=== PATIENT | male | born 1960 ===

== ENCOUNTER 2019-12-04 13:33 | Inpatient (IN) | payer BC ==
[~2019-12-04] VITALS: Ht 172.7 cm; Wt 78.6 kg
[2019-12-04] VITALS (435 sets, daily range): BP systolic 89–131; BP diastolic 67–83; PULSE 75–102; TEMP 97.6–98.9; O2SAT 73–100
[2019-12-04 16:45] LABS: INR 1.4 (0.8-3.0)
--- NOTE | 2019-12-04 19:20 | NUR ---
REPORT RECEIVED FROM DEWAYNE REYES.
--- NOTE | 2019-12-04 20:05 | NUR ---
RECEIVED PATIENT WITH CARDIZEMAT 15 MG/HR.
--- NOTE | 2019-12-04 20:30 | NUR ---
PT'S DAUGHTER CASSANDRA CALLED AND UPDATED, ALL QUESTIONS ANSWERED.
--- NOTE | 2019-12-04 23:17 | NUR ---
PT HAS NOT URINATED SINCE HE GOT HERE, AND PT TRIED TO PEE COUPLE OF TIMES AND UNSECCESSFUL. BLADDER SCAN SHOWED ABOUT 1500 ML. PT GOT UP AGAIN AND URINATED 300 ML TEA COLORED URINE WITH NO SEDIMENTS.
[2019-12-05] VITALS (588 sets, daily range): BP systolic 91–122; BP diastolic 37–85; PULSE 73–90; TEMP 98–99.3; O2SAT 81–100
--- NOTE | 2019-12-05 00:04 | NUR ---
cho inserted per order, pt tolerated procedure well. bag already has atleast 500 ml if urine within 10 mins, tea-colored but clear.
--- NOTE | 2019-12-05 00:26 | NUR ---
PT SUSTAINING AT 89%, NOW ON O2 AT 2L NC SATTING AT 92%.
[2019-12-05 01:14] LABS: PH 5 (5-8); SQUAMOUS EPITHELIAL None Seen /hpf; URINE APPEARANCE Hazy; URINE BILIRUBIN Negative (NEGATIVE); URINE BLOOD 1+ (NEGATIVE); URINE COLOR Amber; URINE GLUCOSE 3+ (NEGATIVE); URINE KETONE Negative (NEGATIVE); URINE LEUKOCYTE ESTERASE Negative (NEGATIVE); URINE NITRATE Negative (NEGATIVE); URINE PROTEIN(semi-quant) 2+ (NEGATIVE); URINE UROBILINOGEN >=4.0 mg/dL (NEGATIVE)
[2019-12-05 01:35] LABS: COLLECTION METHOD CATHETER
--- NOTE | 2019-12-05 02:43 | NUR ---
PT IS NOW SITTING AT THE RECLINER, BACK TO ROOM AIR AND SATTING AT 93-96%.
[2019-12-05 07:22] LABS: BASO # 0.1 (0.0-0.2); BASO % 1.1 % (0.0-2.0); EOS # 0.1 (0.0-0.7); EOS % 0.6 % (0-4.0); GRAN # 6.4 (1.4-6.5); GRAN % 71.7 % (42.2-75.2); HEMATOCRIT 45.3 % (42.0-52.0); HEMOGLOBIN 14.8 g/dl (13.5-18.0); LYMPH # 1.3 (1.2-3.4); LYMPH % 14.3 % (20.0-51.0); MEAN CELL VOLUME 96 fl (80.0-100.0); MEAN CORPUSCULAR HEMOGLOBIN 31 pg (27.0-31.0); MEAN CORPUSCULAR HGB CONC 33 g/dl (33.0-37.0); MEAN PLATELET VOLUME 10.4 fl (7.4-10.4); MONO # 1.1 (0.1-0.6); PLATELET COUNT 217 K/mm3 (130-400); RED BLOOD COUNT 4.72 M/mm3 (4.20-5.60); REDCELL DISTRIBUTION WIDTH-CV 13.4 % (11.5-14.5)
--- NOTE | 2019-12-05 07:23 | NUR ---
report given to DEWAYNE Johnston.
[2019-12-05 07:40] LABS: ALBUMIN 3.6 gm/dL (3.5-5.0); BILIRUBIN,TOTAL 1.2 mg/dL (0.0-1.0); CALCIUM 8.4 mg/dL (8.4-10.2); CHOLESTEROL RISK RATIO 3.4; CREATININE, serum 1.93 (0.66-1.25); TOTAL PROTEIN 7.3 gm/dL (6.4-8.2)
[2019-12-05 08:10] LABS: TSH w REFLEX 2.49 uIU/mL (0.465-4.680)
--- NOTE | 2019-12-05 09:35 | NUR ---
LUIS EDUARDO attended clinical rounds. The patient's step-daughter, Radha (ph#[phone]), was on speaker phone. The patient is to have a heart cath today. LUIS EDUARDO then followed up with the patient to discuss discharge plan. The patient lives in [place] with his , Francisca (ph#[phone]). He reports independence with ADLs and does not have any DME. The patient does not have a PCP. He states that he would be agreeable to get set up with a PCP and preferred a provider is [place]. LUIS EDUARDO contacted [place] at [facility] and secured the patient and appointment with Dr. Tiburcio Lemus on 12/13 at 1400. [place] emailed LUIS EDUARDO the registation forms that need to be completed by patient. LUIS EDUARDO updated the patient and provided him with the registration forms. LUIS EDUARDO notified the patient's RN of the appointment. The patient receives his medications at the [facility] in [place]. He reports no difficulties obtaining his meds. The patient does not have advanced directives completed, but he was interested in obtaining a form for DPOA-HC. LUIS EDUARDO provided. The patient states that his can get confused and to contact his step-daughter. The patient states that he has three children: Justice, Abhishek, and Sloan. He states that he talks to them once in a blue estes. The patient plans to return home with his upon discharge. LUIS EDUARDO attempted to contact the patient's , Francisca. Francisca's voicemail was full and SW was unable to leave a voicemail. LUIS EDUARDO contacted and reviewed d/c plan with the patient's step-daughter, Radha. Radha was agreeable to the plan and states that she will keep the patient's updated. LUIS EDUARDO updated the patient's RN and hospitalist on who is next of kin is. SW to continue to follow.
--- NOTE | 2019-12-05 11:10 | NUR ---
report given to DEWAYNE Padron. Patient brought up to medical floor, room 318. DEWAYNE Padron met us in the room. Patient is stable and octreotide is running in PIV.
--- NOTE | 2019-12-05 15:11 | NUR ---
Patient just left unit with rn labor delivery RN to get cardiac catheterization.
--- NOTE | 2019-12-05 15:34 | NUR ---
SEE MERGE FOR ALL MEDICATION ADMINISTRATION TIMES, INTRA AND POST SEDATION ASSESSMENT
--- NOTE | 2019-12-05 19:20 | NUR ---
report received from DEWAYNE Johnston.
--- NOTE | 2019-12-05 19:30 | NUR ---
7 cc of air left in TR band upon shift change. 2 cc of air removed from TR band. now left with 5 cc of air. pulses good. no hematoma or bleeding noted.
--- NOTE | 2019-12-05 20:00 | NUR ---
TR band deflated by 3 cc of air, now left with 2 cc. no bleeding or hematoma noted. pulses good.
[2019-12-05 20:10] LABS: INR 1.5 (0.8-3.0); PROTHROMBIN TIME 16.9 SECONDS (9.7-12.8)
[2019-12-06] VITALS (717 sets, daily range): BP systolic 101–126; BP diastolic 68–79; PULSE 79–96; TEMP 98.3–98.7; O2SAT 79–100
--- NOTE | 2019-12-06 | NUR ---
TR BAN DCOMPLETELY OFF, BAND AID APPLIED. NO HEMATOMA NOR BLEDDING NOTED. PT DENIES ANY PAIN/DISCOMFORT.
--- NOTE | 2019-12-06 01:07 | NUR ---
PT CONVERTED TO SR PER FRONT OFFICE DIRECTOR ISABEL, EKG ORDERED, CONCEPCION GUTIERRES NOTIFIED.
[2019-12-06 04:00] LABS: BASO # 0.1 (0.0-0.2); BASO % 0.4 % (0.0-2.0); EOS # 0.1 (0.0-0.7); EOS % 0.5 % (0-4.0); GRAN # 10.4 (1.4-6.5); GRAN % 75.9 % (42.2-75.2); HEMATOCRIT 43.9 % (42.0-52.0); HEMOGLOBIN 14.4 g/dl (13.5-18.0); LYMPH # 1.7 (1.2-3.4); LYMPH % 12.3 % (20.0-51.0); MEAN CELL VOLUME 95 fl (80.0-100.0); MEAN CORPUSCULAR HEMOGLOBIN 31 pg (27.0-31.0); MEAN CORPUSCULAR HGB CONC 33 g/dl (33.0-37.0); MEAN PLATELET VOLUME 10.6 fl (7.4-10.4); MONO # 1.4 (0.1-0.6); MONO % 10.1 % (1.7-9.3); PLATELET COUNT 206 K/mm3 (130-400); REDCELL DISTRIBUTION WIDTH-CV 13.4 % (11.5-14.5)
[2019-12-06 04:12] LABS: ALBUMIN 3.7 gm/dL (3.5-5.0); BILIRUBIN,TOTAL 1.6 mg/dL (0.0-1.0); CALCIUM 8.3 mg/dL (8.4-10.2); CREATININE, serum 1.99 (0.66-1.25); POTASSIUM 3.8 mmol/L (3.4-5.0); TOTAL PROTEIN 7.4 gm/dL (6.4-8.2)
[2019-12-07] VITALS (789 sets, daily range): BP systolic 74–124; BP diastolic 51–87; PULSE 89–117; TEMP 97.1–98.6; O2SAT 49–100
[2019-12-07 03:52] LABS: BASO % 0.3 % (0.0-2.0); EOS # 0.1 (0.0-0.7); EOS % 0.7 % (0-4.0); GRAN # 6.3 (1.4-6.5); GRAN % 69.8 % (42.2-75.2); HEMATOCRIT 41.4 % (42.0-52.0); HEMOGLOBIN 13.6 g/dl (13.5-18.0); LYMPH # 1.2 (1.2-3.4); LYMPH % 13.7 % (20.0-51.0); MEAN CELL VOLUME 95 fl (80.0-100.0); MEAN CORPUSCULAR HEMOGLOBIN 31 pg (27.0-31.0); MEAN CORPUSCULAR HGB CONC 33 g/dl (33.0-37.0); MEAN PLATELET VOLUME 10.2 fl (7.4-10.4); MONO # 1.4 (0.1-0.6); MONO % 15.3 % (1.7-9.3); PLATELET COUNT 198 K/mm3 (130-400); RED BLOOD COUNT 4.35 M/mm3 (4.20-5.60); REDCELL DISTRIBUTION WIDTH-CV 13.1 % (11.5-14.5)
[2019-12-07 04:03] LABS: ALBUMIN 3.6 gm/dL (3.5-5.0); BILIRUBIN,TOTAL 1.1 mg/dL (0.0-1.0); CALCIUM 8.3 mg/dL (8.4-10.2); CREATININE, serum 2.01 (0.66-1.25); POTASSIUM 3.8 mmol/L (3.4-5.0); TOTAL PROTEIN 7.4 gm/dL (6.4-8.2)
--- NOTE | 2019-12-07 09:01 | NUR ---
Dr. Irvin called and message left for nephrology consult on PT.
--- NOTE | 2019-12-07 11:36 | NUR ---
SW attended clinical rounds. The patient has not maintained adequate urine output. Nephrology was consulted. SW to continue to follow.
--- NOTE | 2019-12-07 12:53 | NUR ---
Initial visit; Patient appears and states he is discouraged with his health issues. He is non-receptive to spiritual care.
--- NOTE | 2019-12-07 22:17 | NUR ---
PT WITH RED TINGED URINE AND SMALL CLOTS IN LEAL CATH TUBING AND BAG. CATHETER FLUSHED WITH 50ML STERILE WATER, ANEESH URINE RETURN.
[2019-12-07 22:24] LABS: URINE PROTEIN:CREAT RATIO 10.08 (0.00-0.14)
[2019-12-08] VITALS (713 sets, daily range): BP systolic 90–133; BP diastolic 59–97; PULSE 66–86; TEMP 96.5–98.7; O2SAT 56–100
--- NOTE | 2019-12-08 01:06 | NUR ---
Jelena called for Total Urine Protein level. No new orders at this time.
[2019-12-08 08:18] LABS: BASO % 0.3 % (0.0-2.0); GRAN # 9.2 (1.4-6.5); GRAN % 82.1 % (42.2-75.2); HEMATOCRIT 43.8 % (42.0-52.0); HEMOGLOBIN 14.4 g/dl (13.5-18.0); LYMPH # 0.7 (1.2-3.4); LYMPH % 6.3 % (20.0-51.0); MEAN CELL VOLUME 94 fl (80.0-100.0); MEAN CORPUSCULAR HEMOGLOBIN 31 pg (27.0-31.0); MEAN CORPUSCULAR HGB CONC 33 g/dl (33.0-37.0); MONO # 1.2 (0.1-0.6); MONO % 10.7 % (1.7-9.3); PLATELET COUNT 189 K/mm3 (130-400); RED BLOOD COUNT 4.64 M/mm3 (4.20-5.60); REDCELL DISTRIBUTION WIDTH-CV 13.1 % (11.5-14.5)
[2019-12-08 08:26] LABS: ALBUMIN 3.5 gm/dL (3.5-5.0); BILIRUBIN,TOTAL 2.4 mg/dL (0.0-1.0); CREATININE, serum 2.86 (0.66-1.25); POTASSIUM 4.6 mmol/L (3.4-5.0); TOTAL PROTEIN 7.3 gm/dL (6.4-8.2)
--- NOTE | 2019-12-08 08:30 | NUR ---
CARDIOVERSION PERFORMED BY DR. CUNHA WITH 150 JOULES. PATIENT CARDIOVERTED TO SINUS RHYTHM WITH PACs. VS REMAIN WNL. WILL CONTINUE TO MONITOR.
--- NOTE | 2019-12-08 09:23 | NUR ---
LUIS EDUARDO attended clinical rounds. The patient was cardioverted this morning and is on a bumex drip. LUIS EDUARDO then followed up with the patient. The patient states that he is feeling pretty good. Hopeful to get things figured out soon. LUIS EDUARDO then contacted the patient's , Francisca. Francisca states that she is tired, due to her cancer. SW informed Francisca of SW's role. Francisca reports that she has no concerns with the patient returning back home with her upon discharge. SW to continue to follow.
--- NOTE | 2019-12-08 10:00 | NUR ---
UPDATE GIVEN TO DAUGHTER, CASSANDRA.
--- NOTE | 2019-12-08 14:30 | NUR ---
CENTRAL LINE IN RIGHT IJ HAS PERSISTENT OOZING. DRESSING CHANGED THREE TIMES, PRESSURE HELD AND DR. MAHER GIVES ORDER TO PLACE D-STAT THROMBIN DRESSING TO HELP WITH OOZING. PRESSURE DRESSING PLACED OVER CENTRAL LINE DRESSING AFTER PRESSURE IS HELD. PATIENT TOLERATES THIS WITHOUT ISSUE.
--- NOTE | 2019-12-08 16:00 | NUR ---
INTERMITTENT NAUSEA TODAY. DR. JUNG GIVES ORDER FOR ZOFRAN.
[2019-12-08 16:18] LABS: ALBUMIN 3.3 gm/dL (3.5-5.0); BILIRUBIN,TOTAL 2.3 mg/dL (0.0-1.0); CALCIUM 7.7 mg/dL (8.4-10.2); CREATININE, serum 2.89 (0.66-1.25); POTASSIUM 4.5 mmol/L (3.4-5.0); TOTAL PROTEIN 6.9 gm/dL (6.4-8.2)
[2019-12-09] VITALS (641 sets, daily range): BP systolic 107–145; BP diastolic 79–99; PULSE 54–124; TEMP 97.8–98.9; O2SAT 62–100
[2019-12-09 05:27] LABS: BASO % 0.2 % (0.0-2.0); EOS % 0.1 % (0-4.0); GRAN # 5.8 (1.4-6.5); GRAN % 72.2 % (42.2-75.2); HEMATOCRIT 44.2 % (42.0-52.0); HEMOGLOBIN 14.8 g/dl (13.5-18.0); LYMPH # 0.9 (1.2-3.4); MEAN CELL VOLUME 92 fl (80.0-100.0); MEAN CORPUSCULAR HEMOGLOBIN 31 pg (27.0-31.0); MEAN CORPUSCULAR HGB CONC 34 g/dl (33.0-37.0); MEAN PLATELET VOLUME 10.6 fl (7.4-10.4); MONO # 1.3 (0.1-0.6); MONO % 15.8 % (1.7-9.3); PLATELET COUNT 198 K/mm3 (130-400); RED BLOOD COUNT 4.79 M/mm3 (4.20-5.60); REDCELL DISTRIBUTION WIDTH-CV 12.8 % (11.5-14.5)
[2019-12-09 05:43] LABS: ALBUMIN 3.5 gm/dL (3.5-5.0); BILIRUBIN,TOTAL 2.4 mg/dL (0.0-1.0); CALCIUM 7.8 mg/dL (8.4-10.2); CREATININE, serum 2.48 (0.66-1.25); POTASSIUM 3.8 mmol/L (3.4-5.0); TOTAL PROTEIN 7.4 gm/dL (6.4-8.2)
[2019-12-09 10:14] LABS: INR 5.6 (0.8-3.0); PROTHROMBIN TIME 63.9 SECONDS (9.7-12.8)
--- NOTE | 2019-12-09 10:19 | NUR ---
NOTIFIED OF PTS INR ELEVATED TO 5. ORDER TO DECREASE ELIQUIS. CONTINUE TO MONITOR FOR BLEEDING.
--- NOTE | 2019-12-09 11:55 | NUR ---
PT APPEAR TO BE IN AFIB. RT CALLED FOR EKG. EKG SHOWS AFLUTTER. NOTIFIED. BP 119/94. STATES SHE WILL PLACE ORDERS. WILL CONTINUE TO [facility].
--- NOTE | 2019-12-09 13:00 | NUR ---
DECREASE TO 2ML/HR PER AND ARCHIE AT MIDNIGHT.
--- NOTE | 2019-12-09 23:30 | NUR ---
PATIENT GOT OUT OF BED TO USE COMMODE, TOOK 3 TO FOUR STEPS WITH STAFF OF ONE [id number], PATIENT HAD GOTTEN EXCITED ABOUT BEING ABLE TO GET OTU OF BED. ALSO COMPLAIN OF SORENESS IN BUTTOCKS AREA, NO REDNESS OR SWELLNG FOUND
[2019-12-10] VITALS (590 sets, daily range): BP systolic 102–111; BP diastolic 58–87; PULSE 46–124; TEMP 97.1–98.2; O2SAT 68–100
[2019-12-10 09:50] LABS: BASO % 0.5 % (0.0-2.0); EOS # 0.1 (0.0-0.7); GRAN # 6.2 (1.4-6.5); GRAN % 71.3 % (42.2-75.2); HEMATOCRIT 51.5 % (42.0-52.0); LYMPH # 1.2 (1.2-3.4); LYMPH % 13.4 % (20.0-51.0); MEAN CELL VOLUME 94 fl (80.0-100.0); MEAN CORPUSCULAR HEMOGLOBIN 31 pg (27.0-31.0); MEAN CORPUSCULAR HGB CONC 33 g/dl (33.0-37.0); MEAN PLATELET VOLUME 10.7 fl (7.4-10.4); MONO # 1.2 (0.1-0.6); MONO % 13.3 % (1.7-9.3); PLATELET COUNT 277 K/mm3 (130-400); RED BLOOD COUNT 5.49 M/mm3 (4.20-5.60); REDCELL DISTRIBUTION WIDTH-CV 13.1 % (11.5-14.5)
[2019-12-10 09:52] LABS: INR 3.5 (0.8-3.0)
[2019-12-10 10:08] LABS: ALBUMIN 3.5 gm/dL (3.5-5.0); BILIRUBIN,TOTAL 2.9 mg/dL (0.0-1.0); CALCIUM 8.6 mg/dL (8.4-10.2); CREATININE, serum 1.57 (0.66-1.25); MAGNESIUM 1.4 mg/dL (1.6-2.3); POTASSIUM 3.8 mmol/L (3.4-5.0); TOTAL PROTEIN 7.5 gm/dL (6.4-8.2)
[2019-12-10 12:06] LABS: URINE HOURS (UPEP) 24 (())
[2019-12-11] VITALS (695 sets, daily range): BP systolic 102–124; BP diastolic 50–83; PULSE 72–110; TEMP 97.8–98.4; O2SAT 71–100
[2019-12-11 05:28] LABS: BASO # 0.1 (0.0-0.2); BASO % 0.7 % (0.0-2.0); EOS # 0.2 (0.0-0.7); EOS % 2.1 % (0-4.0); GRAN # 4.7 (1.4-6.5); GRAN % 62.3 % (42.2-75.2); HEMOGLOBIN 15.7 g/dl (13.5-18.0); LYMPH # 1.2 (1.2-3.4); LYMPH % 16.3 % (20.0-51.0); MEAN CELL VOLUME 93 fl (80.0-100.0); MEAN CORPUSCULAR HEMOGLOBIN 31 pg (27.0-31.0); MEAN CORPUSCULAR HGB CONC 33 g/dl (33.0-37.0); MEAN PLATELET VOLUME 10.1 fl (7.4-10.4); MONO # 1.4 (0.1-0.6); MONO % 17.9 % (1.7-9.3); PLATELET COUNT 258 K/mm3 (130-400); RED BLOOD COUNT 5.04 M/mm3 (4.20-5.60); REDCELL DISTRIBUTION WIDTH-CV 13.1 % (11.5-14.5)
[2019-12-11 05:37] LABS: ALBUMIN 3.2 gm/dL (3.5-5.0); BILIRUBIN,TOTAL 2.8 mg/dL (0.0-1.0); CALCIUM 8.4 mg/dL (8.4-10.2); CREATININE, serum 1.28 (0.66-1.25); MAGNESIUM 1.8 mg/dL (1.6-2.3); POTASSIUM 3.2 mmol/L (3.4-5.0)
[2019-12-11 07:57] LABS: KAPPA LAMBDA RATIO 1.42 ratio (()); LAMDA FREE LIGHT CHAIN SERUM 74.73 mg/L (())
[2019-12-11 09:39] LABS: INR 2.4 (0.8-3.0); PROTHROMBIN TIME 27.4 SECONDS (9.7-12.8)
--- NOTE | 2019-12-11 20:16 | NUR ---
DURING ASSESSMENT PATIENT DENIES DISCOMFORT, FOUND IN RECLINER, PATIENT EXCITED ABOUT ACHIEVEMENTS OF TODAY LIKE AMBULATING HALLWAYS, AND BEING OUT OF BED ALL DAY.
[2019-12-12] VITALS (294 sets, daily range): BP systolic 94–121; BP diastolic 63–90; PULSE 46–107; TEMP 97.4–98.5; O2SAT 68–100
[2019-12-12 05:10] LABS: HEMATOCRIT 46.5 % (42.0-52.0); HEMOGLOBIN 15.2 g/dl (13.5-18.0); MEAN CELL VOLUME 93 fl (80.0-100.0); MEAN CORPUSCULAR HEMOGLOBIN 31 pg (27.0-31.0); MEAN CORPUSCULAR HGB CONC 33 g/dl (33.0-37.0); MEAN PLATELET VOLUME 10.3 fl (7.4-10.4); PLATELET COUNT 270 K/mm3 (130-400); RED BLOOD COUNT 4.99 M/mm3 (4.20-5.60); REDCELL DISTRIBUTION WIDTH-CV 13.2 % (11.5-14.5)
[2019-12-12 05:19] LABS: INR 2.5 (0.8-3.0); PROTHROMBIN TIME 28.4 SECONDS (9.7-12.8)
[2019-12-12 05:32] LABS: ALBUMIN 3.3 gm/dL (3.5-5.0); ALKALINE PHOSPHATASE 212 U/L (50-136); ANION GAP 7 mmol/L (7-16); AST,SGOT > 750 U/L (15-37); BILIRUBIN,TOTAL 2.3 mg/dL (0.0-1.0); BLOOD UREA NITROGEN 25 mg/dL (9-20); CALCIUM 8.6 mg/dL (8.4-10.2); CARBON DIOXIDE 34 mmol/L (22-30); CHLORIDE 92 mmol/L (98-107); GLUCOSE 137 mg/dL (74-106); MAGNESIUM 1.7 mg/dL (1.6-2.3); POTASSIUM 3.5 mmol/L (3.4-5.0); SODIUM 133 mmol/L (137-145)
[2019-12-12 05:38] LABS: ALANINE AMINOTRANSFERASE 1106 U/L (4-49)
[2019-12-12 06:09] LABS: BAND 2 % (0-10); EOSINOPHIL 5 % (0-4); HYPOCHROMIA 1+; LYMPHOCYTE 13 % (20.0-51.0); NEUTROPHILS 69 % (42.0-75.2); PLATELET ESTIMATE NORMAL (NORMAL)
--- NOTE | 2019-12-12 10:48 | NUR ---
LUIS EDUARDO met with the patient to follow up. The patient reports that he is doing pretty good. He states that this weekend went okay and that he slept on and off. LIUS EDUARDO reviewed d/c plan and discussed home health services to assist with his new diagnosis of heart failure. The patient reports that he would be interested in home health. LUIS EDUARDO provided the patient with [email or web address]'s list of home health agencies. The patient chose [facility]. LUIS EDUARDO attempted to contact Gema at [facility]. LUIS EDUARDO left her a voicemail and faxed over the referral. The patient has [employer] and will likely need auth for home health. LUIS EDUARDO contacted [facility] and rescheduled the patient's PCP appointment with Dr. Lemus to Wednesday, 12/19, at 1000, since the patient is still hospitalized. LUIS EDUARDO to continue to follow.
--- NOTE | 2019-12-12 11:30 | NUR ---
Gema, at [facility], reports that she received the referral and is checking insurance coverage now.
--- NOTE | 2019-12-12 13:18 | NUR ---
Gema, at [facility], reports that the patient's insurance does not have home health therapy benefits. Only outpatient therapy services. She states that they could have an RN visit the patient at least three times. SW to inform the patient and will continue to follow.
--- NOTE | 2019-12-12 13:58 | NUR ---
SW updated the patient about the referral to [facility] and how an RN could come and see him three times. The patient states that he is not interested in that at this time. The patient is to tentatively transfer to the medical floor today. SW to continue to follow.
--- NOTE | 2019-12-12 20:03 | NUR ---
Pt up to room 356 around 1600, pt A&O, SBA in room, on room air, breathing is even and unlabored. LS cta, denies SOB. Pt denies pain, dizziness, N/V/D, chest pain, abdominal pain. Pt has triple lumen RIJ, all ports flush w/ good blood return. Pt has RAC and LFA INT IVs as well. BLE 1-2+, heart RRR, BS active. Pulses strong bilaterally. Pt denies needs at this time. Report given to DEWAYNE Lam.
--- NOTE | 2019-12-12 20:40 | NUR ---
Assessment complete. Pt resting in bed watching tv. Denies chest pain, palpitations, shortness of breath, dizziness, or nausea. Mild edema noted to BLE. Right IJ line clean, dry, intact, blood return noted to all ports and flushes easily. Left forearm and right AC INTs intact and flush easily. Heart rhythm irregular, rate normal at this time. Will continue to monitor.
[2019-12-13] VITALS (7 sets, daily range): BP systolic 112–133; BP diastolic 66–82; PULSE 18–81; TEMP 97.4–98.4
--- NOTE | 2019-12-13 05:24 | NUR ---
Pt has slept for most of night. No complaints of pain or other concerns. Heart rhythm has remained in Atrial flutter with rate in the 70s to 80s and occasional dips into 40s-50s per manager monitoring. Pt asleep in bed at this time.
[2019-12-13 07:21] LABS: INR 2.2 (0.8-3.0); PROTHROMBIN TIME 24.6 SECONDS (9.7-12.8)
[2019-12-13 08:01] LABS: MAGNESIUM 1.8 mg/dL (1.6-2.3)
[2019-12-13 08:24] LABS: BASO # 0.1 (0.0-0.2); BASO % 0.6 % (0.0-2.0); EOS # 0.4 (0.0-0.7); EOS % 4.3 % (0-4.0); GRAN # 5.6 (1.4-6.5); GRAN % 60.2 % (42.2-75.2); HEMATOCRIT 47.7 % (42.0-52.0); HEMOGLOBIN 15.4 g/dl (13.5-18.0); LYMPH # 1.8 (1.2-3.4); LYMPH % 19.4 % (20.0-51.0); MEAN CELL VOLUME 96 fl (80.0-100.0); MEAN CORPUSCULAR HEMOGLOBIN 31 pg (27.0-31.0); MEAN CORPUSCULAR HGB CONC 32 g/dl (33.0-37.0); MEAN PLATELET VOLUME 10.5 fl (7.4-10.4); MONO # 1.4 (0.1-0.6); MONO % 14.9 % (1.7-9.3); PLATELET COUNT 259 K/mm3 (130-400); RED BLOOD COUNT 4.98 M/mm3 (4.20-5.60); REDCELL DISTRIBUTION WIDTH-CV 13.3 % (11.5-14.5)
[2019-12-13 08:29] LABS: CREATININE, serum 1.02 (0.66-1.25)
--- NOTE | 2019-12-13 09:09 | NUR ---
Assessment completed, alert/oriented, vital signs stable, denies any chest pain/discomfort or palpitations, heart irregular/ A.flutter on tele with rate control, lungs CTA/ no resp.difficulty noted, he is sitting on side of the bed eating breakfast and denies other needs at this time, will continue to monitor
[2019-12-13 11:38] LABS: URIN CONCENTRATION 24HR (UPEP) 31 mg/dL (())
--- NOTE | 2019-12-13 15:50 | NUR ---
Auto Washer provided follow up appointment with Dr. Lemus (12/20/19 @1713) to day camp unit leader. LUIS EDUARDO also notified Gema at [facility] that patient declined nursing visits. LUIS EDUARDO will keep Gema updated and will continue to follow.
[2019-12-13 16:35] LABS: A/G RATIO (PEP) 0.71 (()); BETA GLOBULINS (PEP) 0.8 g/dL (0.7-1.2)
--- NOTE | 2019-12-13 18:56 | NUR ---
Received report from Salomón BUCHANAN. Pt sitting up in bed eating dinner at this time. Consent obtained for ROBERT/CV tomorrow by Salomón. Pt denies other needs at this time.
--- NOTE | 2019-12-13 20:21 | NUR ---
Assessment complete. Pt resting in bed watching tv. Denies chest pain, SOA, dizziness, or other symptoms. Right IJ line clean, dry, intact. Blood return noted all ports and flushes easily. INTs to right AC and left forearm intact and flush easily. Heart rhythm irregular, rate regular. Pt denies any concerns at this time. Will continue to monitor.
[2019-12-14 00:59] LABS: URINE PROTEIN:CREAT RATIO 1.87 (0.00-0.14)
[2019-12-14 03:16] VITALS: BP 120/70; PULSE 41; TEMP 98.2
--- NOTE | 2019-12-14 05:20 | NUR ---
Asleep in bed throughout night. No complaints of chest pain, palpitations, shortness of breath, dizziness. Ambulated to bathroom independently once last night. Urine protein-creatinine and urine protein collected. Nothing to eat or drink since prior to midnight. ROBERT/CV scheduled this AM, consent signed and on chart.
[2019-12-14 07:57] LABS: PROTHROMBIN TIME 22.2 SECONDS (9.7-12.8)
[2019-12-14 08:02] LABS: CALCIUM 8.8 mg/dL (8.4-10.2); CREATININE, serum 0.88 (0.66-1.25); POTASSIUM 3.9 mmol/L (3.4-5.0)
--- NOTE | 2019-12-14 08:57 | NUR ---
Assessment completed, alert/oriented, vital signs stable, denies any chest discomfort / palpitations over night, heart irregula/ A.fib on tele with rate control, scheduled for ROBERT/CV this morning, consnet signed and he has been NPO jelani GARCIA, denies other needs at this time
[2019-12-14 10:40] VITALS: BP 125/72; PULSE 60; TEMP 98.2
--- NOTE | 2019-12-14 10:45 | NUR ---
Patient arrived back to room 356 from ROBERT/CV at this time, he is alert/oriented, vital signs stable, denies pain, tolerating PO intake
[2019-12-14 11:00] VITALS: BP 120/74; PULSE 61
[2019-12-14 11:49] VITALS: BP 122/74; PULSE 63; TEMP 98
[2019-12-14] MEDS ORDERED: ELIQUIS 2.5 PO (12:30)
[2019-12-14] MEDS ORDERED: DIGITEK0.25 MG PO (12:32)
[2019-12-14] MEDS ORDERED: TOPROL XL 25MG25 MG PO (12:32)
[2019-12-14] MEDS ORDERED: PACERONE400 MG PO (12:32)
[2019-12-14] MEDS ORDERED: HYGROTON 2525 MG/TAB PO ×2 (12:33→13:58)
[2019-12-14] MEDS ORDERED: LEVEMIR FLEX100 U/ML SQ (12:36)
[2019-12-14] MEDS ORDERED: FREESTYLE PREC1 EAC5 MC (12:37)
[2019-12-14] MEDS ORDERED: PRINIVIL2.5 MG PO (12:37)
[2019-12-14] MEDS ORDERED: NOVOLOG FLEX100 U/ML SQ (12:37)
[2019-12-14] MEDS ORDERED: LANCETS MC (12:38)
[2019-12-14] MEDS ORDERED: GLUCOSE TEST ST1 DEV MC (12:38)
[2019-12-14] MEDS ORDERED: [UNRECOGNIZED DRUG - SUPPLY] TP (12:39)
[2019-12-14] MEDS ORDERED: ELIQUIS 5MG PO (13:58)
--- NOTE | 2019-12-14 16:58 | NUR ---
Brick Cleaner attended clinical rounds with the team. Patient states he is not interested in home health at this time. SW followed up with patient after rounds. Patient denies any quesitons or concerns at this time and will discharge home later today.
--- NOTE | 2019-12-14 17:00 | NUR ---
LUIS EDUARDO was notified by the patient's RN that the patient is in need of a FWW. LUIS EDUARDO addressed this with the patient. The patient states that he does need a FWW and that he would prefer to get the FWW from [facility]. LUIS EDUARDO contacted and faxed the FWW order to [facility]. [facility] reports that they do not have any FWWs at this time, but will be getting some in tomorrow. She states that they can contact the patient and family tomorrow. LUIS EDUARDO provided her with the patient's step-daughter's phone number. LUIS EDUARDO contacted and updated the patient's step-daughter, Radha. Radha verbalized understanding and was agreeable to the above plan. No additional needs at this time.
--- NOTE | 2019-12-14 17:16 | NUR ---
Discharge instructions discussed with patient and family, instructed to follow up with PCp and Cardiology as scheduled for him, discussed all new medications and provided scripts for them, Right TLIJ removed and pressure held for 10 minutes/ sterile dressing applied and instructed on bathing and activity restrictions, bilateral peripheral IV sites removed as well as telemetry, answered all patients and familys questions, I escorted him out the building by wheelchair
== END 2019-12-14 17:22 | disposition home or self-care (01) | DRG 286 ==
LOC: EDBD → ICU 13:33 → MEDICAL 13:39 → ICU 12-05 16:16 → MEDICAL 12-12 16:00
PROVIDERS: Internal Medicine Adult Congenital Heart Disease; Internal Medicine Nephrology; Internal Medicine Pulmonary Disease; Physician Assistant; ADMIT Hospitalist
PROC: 4A023N6 Measurement of Cardiac Sampling and Pressure, Right Heart, Percutaneous Approach (ICD-10-PCS; 2019-12-05)
PROC: 05HM33Z Insertion of Infusion Device into Right Internal Jugular Vein, Percutaneous Approach (ICD-10-PCS; principal; 2019-12-08)
DX: I48.92 Unspecified atrial flutter (principal); I50.23 Acute on chronic systolic (congestive) heart failure; K72.00 Acute and subacute hepatic failure without coma; I13.0 Hypertensive heart and chronic kidney disease with heart failure and stage 1 through stage 4 chronic kidney disease, or unspecified chronic kidney disease; N17.9 Acute kidney failure, unspecified; E87.1 Hypo-osmolality and hyponatremia; E11.65 Type 2 diabetes mellitus with hyperglycemia; N18.9 Chronic kidney disease, unspecified; E11.22 Type 2 diabetes mellitus with diabetic chronic kidney disease; D72.829 Elevated white blood cell count, unspecified; R33.9 Retention of urine, unspecified; I25.5 Ischemic cardiomyopathy; R80.9 Proteinuria, unspecified
CPT/HCPCS: 99222-AI; 99232-AI; 99233-AI; 99239; C1769; J0282; J1250; J1644; J1815; J1940; J2250; J2370; J2405; J2550; J2704; J3010; J3475; J3480; J7060

== ENCOUNTER 2020-04-12 07:27 | Day surgery (SDC) | payer BC, OTHER, MEDICAID ==
[~2020-04-12] VITALS: Ht 172.7 cm; Wt 69.1 kg
[~2020-04-12 07:27] MED LIST: DIGITEK0.25 MG PO; ELIQUIS 2.5 PO; ELIQUIS 5MG PO; FREESTYLE PREC1 EAC5 MC; GLUCOSE TEST ST1 DEV MC; HYGROTON 2525 MG/TAB PO; LANCETS MC; LEVEMIR FLEX100 U/ML SQ; NOVOLOG FLEX100 U/ML SQ; PACERONE400 MG PO; PRINIVIL2.5 MG PO; TOPROL XL 25MG25 MG PO; [UNRECOGNIZED DRUG - SUPPLY] TP
[2020-04-12] MEDS ORDERED: LOPRESSOR 225 MG/TAB PO (08:01)
[2020-04-12] MEDS ORDERED: LIPITOR20 MG PO (08:01)
[2020-04-12] MEDS ORDERED: LEXAPRO 10MG10 MG PO (08:02)
[2020-04-12] MEDS ORDERED: MEXITIL 150MG150 MG PO (08:02)
[2020-04-12] MEDS ORDERED: PROSCAR 5MG5 MG PO (08:02)
[2020-04-12] MEDS ORDERED: PROTONIX 40MG T40 MG PO (08:03)
[2020-04-12] MEDS ORDERED: ZOFRAN ODT4 MG PO (08:03)
[2020-04-12] MEDS ORDERED: HONEY BEARS MU1 EACH PO (08:03)
[2020-04-12] MEDS ORDERED: FLOMAX 0.40.4 MG/CAP PO (08:03)
[2020-04-12 08:04] VITALS: BP 116/65; PULSE 86; TEMP 97.5
--- NOTE | 2020-04-12 09:25 | NUR ---
Dr. Gill is at the patient's bedside to begin the procedure. DEWAYNE Lopes is assisting him. Will continue to monitor the patient when the procedure is complete.
--- NOTE | 2020-04-12 09:45 | NUR ---
Procedure is completed and Dr. Gill has spoke with Radha, the patient's sri haynes and RAMY. An indwelling catheter was placed during the procedure that the patient is to be discharged home with.
--- NOTE | 2020-04-12 10:00 | NUR ---
2000 ml of yellow, clear urine was emptied from the patient's catheter. The patient and his step daughter were taught how to switch to a leg bag catheter and verbalized understanding.
--- NOTE | 2020-04-12 10:05 | NUR ---
Discharge instructions were reviewed with the patient and Radha at this time. They both verbalized understanding and have no questions for the nurse at this time.
--- NOTE | 2020-04-12 10:10 | NUR ---
The nurse assisted the patient to get dressed adn transferred back into the wheelchair at this time. He appeared to tolerate the activity well.
--- NOTE | 2020-04-12 10:20 | NUR ---
The patient was escorted out via wheelchair to a private vehicle by DEWAYNE Espana. The patient's belongings and discharge paperwork were sent with him. The patient's step daughter, Radha, is present to drive him home.
== END 2020-04-12 10:20 | disposition home or self-care (01) ==
LOC: SDCO 07:27
DX: R33.9 Retention of urine, unspecified (principal); Z87.440 Personal history of urinary (tract) infections; I48.0 Paroxysmal atrial fibrillation; I25.10 Atherosclerotic heart disease of native coronary artery without angina pectoris; E11.22 Type 2 diabetes mellitus with diabetic chronic kidney disease; I50.9 Heart failure, unspecified; N18.30 Chronic kidney disease, stage 3 unspecified; I49.5 Sick sinus syndrome; R80.9 Proteinuria, unspecified; Z79.4 Long term (current) use of insulin
CPT/HCPCS: A4314